=== PATIENT | male | born 1995 | race Caucasian/White ===

== ENCOUNTER 2017-09-16 16:05 | Emergency (ER) | payer OTHER ==
[~2017-09-16] VITALS: Ht 177.8 cm; Wt 82.0 kg
[~2017-09-16 16:05] MED LIST: IBUP100S PO
[2017-09-16 16:29] VITALS: BP 130/73; PULSE 65; RESP 16; TEMP 98.1; O2SAT 97
[2017-09-16 17:53] VITALS: BP 134/76; PULSE 71; RESP 18; O2SAT 99
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
== END 2017-09-16 19:14 | disposition home or self-care (01) ==
LOC: NEPE 16:05
DX: S80.212A Abrasion, left knee, initial encounter (principal); S09.90XA Unspecified injury of head, initial encounter; F12.90 Cannabis use, unspecified, uncomplicated; V49.40XA Driver injured in collision with unspecified motor vehicles in traffic accident, initial encounter
CPT/HCPCS: 70450; 99283